=== PATIENT | male | born 1995 | race Caucasian/White ===

== ENCOUNTER 2022-11-01 16:39 | Inpatient (IN) | payer MEDICAID ==
[~2022-11-01] VITALS: Ht 165.1 cm; Wt 75.7 kg
[2022-11-01 17:09] VITALS: BP 121/78; PULSE 99; RESP 20; TEMP 98.4
[2022-11-01] MEDS ORDERED: ZOLPIDEM TARTRATE 10 MG TABLET PO PRN (17:15)
[2022-11-01 18:06] LABS: GLUCOMETER DEV NAME(LOC) POC.BV
[2022-11-01] MEDS: BuPROPion HCL XL 150 MG ER TABLET PO SCH (19:10)
[2022-11-01 19:31] VITALS: BP 128/88; PULSE 96; RESP 18; TEMP 98.2; O2SAT 98
[2022-11-01] MEDS: TraZODone HCL 50 MG TABLET PO SCH (20:07)
[2022-11-01] MEDS: LORazepam 2 MG TABLET PO PRN (20:07)
[2022-11-01] MEDS: QUEtiapine FUMARATE 200 MG TABLET PO SCH (20:07)
[2022-11-01 20:49] VITALS: BP 128/88; PULSE 96; RESP 16; TEMP 98.2; O2SAT 99
[2022-11-02] MEDS ORDERED: CloNIDine HCL 0.1 MG TABLET PO PRN (05:30)
[2022-11-02] MEDS ORDERED: MAGNESIUM HYDROXIDE SUSPENSION 30 ML UDCUP PO PRN (05:30)
[2022-11-02] MEDS ORDERED: BACITRACIN 28 GM OINTMENT TP PRN (05:30)
[2022-11-02] MEDS ORDERED: PETROLATUM,WHITE 28 GM JELLY TP PRN (05:30)
[2022-11-02] MEDS ORDERED: IBUPROFEN 600 MG TABLET PO PRN (05:30)
[2022-11-02] MEDS ORDERED: ACETAMINOPHEN 325 MG TABLET PO PRN (05:30)
[2022-11-02] MEDS ORDERED: ONDANSETRON HCL 4 MG TABLET PO PRN (05:30)
[2022-11-02] MEDS ORDERED: DOCUSATE SODIUM 100 MG CAPSULE PO PRN (05:30)
[2022-11-02] MEDS ORDERED: ALBUTEROL SULFATE HFA 90 MCG/PUFF 8 GM INHALER IH PRN (05:30)
[2022-11-02] MEDS ORDERED: MAG HYDROX/AL HYDROX/SIMETH ES 30 ML SUSPENSION UDCUP PO PRN (05:30)
[2022-11-02] MEDS ORDERED: BENZOCAINE/MENTHOL LOZENGE PO PRN (05:30)
[2022-11-02] MEDS ORDERED: OMEPRAZOLE 20 MG CAPSULE PO PRN (05:30)
[2022-11-02] MEDS ORDERED: LOPERAMIDE HCL 2 MG CAPSULE PO PRN (05:30)
[2022-11-02] MEDS: LORazepam 2 MG TABLET PO PRN ×3 (08:01→19:19)
[2022-11-02] MEDS: BuPROPion HCL XL 150 MG ER TABLET PO SCH (08:02)
[2022-11-02 08:21] VITALS: RESP 17
[2022-11-02] MEDS: QUEtiapine FUMARATE 200 MG TABLET PO SCH (20:13)
[2022-11-02] MEDS: TraZODone HCL 50 MG TABLET PO SCH (20:13)
[2022-11-02 20:38] VITALS: BP 134/77; PULSE 94; RESP 18; TEMP 98.2; O2SAT 98
[2022-11-03] MEDS: LORazepam 2 MG TABLET PO PRN ×2 (06:48→20:19)
[2022-11-03] MEDS: BuPROPion HCL XL 150 MG ER TABLET PO SCH (08:12)
[2022-11-03] MEDS: NICOTINE 21 MG/24 HOUR PATCH TD SCH (08:16)
[2022-11-03 08:17] LABS: BASOPHILS % (AUTO) 0.6 % (0.0-2.0); EOSINOPHILS % (AUTO) 4.6 % (1.0-6.0); HEMATOCRIT 42.6 % (41-53); HEMOGLOBIN 14.5 g/dL (13.5-17.5); LYMPHOCYTES % (AUTO) 32.6 % (22.0-44.0); MEAN CORPUSCULAR VOLUME 91 fL (80-100); MONOCYTES # (AUTO) 0.3 K/uL (0.1-1.0); MONOCYTES % (AUTO) 4.3 % (2.0-9.0); NEUTROPHILS # (AUTO) 3.6 K/uL (1.8-7.7); NEUTROPHILS % (AUTO) 57.9 % (40.0-70.0); PLATELET COUNT (AUTO) 292 K/uL (150-450); RED BLOOD CELL COUNT(AUTO) 4.68 MIL/uL (4.50-5.90); RED CELL DISTRIBUTION WIDTH 12.8 % (11.5-14.5)
[2022-11-03 08:37] VITALS: BP 137/76; PULSE 100; RESP 18; TEMP 97; O2SAT 98
[2022-11-03 08:42] LABS: HEMOGLOBIN A1C 4.9 % (3.8-5.6)
[2022-11-03 09:08] LABS: ALANINE AMINOTRANSFERASE 37 U/L (12-78); ALBUMIN 3.8 g/dL (3.4-5.0); ALKALINE PHOSPHATASE 64 U/L (46-116); ANION GAP 14 mmol/L (8-16); ASPARTATE AMINOTRANSFERASE 17 U/L (15-37); BILIRUBIN,TOTAL 0.3 mg/dL (0.1-1.0); CALCIUM, TOTAL 9.3 mg/dL (8.8-10.5); CARBON DIOXIDE 26 mmol/L (22-29); CHLORIDE 102 mmol/L (98-107); CHOL/HDL RATIO 3.6 (4.2-7.3); CHOLESTEROL 130 mg/dL (131-200); CREATININE 1.01 mg/dL (0.60-1.30); GLOMERULAR FILTR. RATE CALC > 60 mL/min (>60); GLUCOSE,RANDOM 143 mg/dL (70-110); HDL CHOLESTEROL 36 mg/dL (40-60); LDL CHOL (CALC.) 66 mg/dL (0-130); POTASSIUM 3.5 mmol/L (3.5-5.1); SODIUM SERUM 142 mmol/L (136-145); THYROID STIMULATING HORMONE 1.75 uIU/mL (0.36-3.74); TOTAL PROTEIN, SERUM 6.9 g/dL (6.4-8.2); TRIGLYCERIDES 142 mg/dL (15-150)
[2022-11-03] MEDS: TraZODone HCL 50 MG TABLET PO SCH (20:19)
[2022-11-03] MEDS: QUEtiapine FUMARATE 200 MG TABLET PO SCH (20:19)
[2022-11-03 20:40] VITALS: BP 130/70; PULSE 78; RESP 18; TEMP 97.8; O2SAT 98
[2022-11-04 08:00] VITALS: BP 138/83; PULSE 95; RESP 18; TEMP 98.7; O2SAT 97
[2022-11-04] MEDS: LORazepam 2 MG TABLET PO PRN ×3 (08:33→20:20)
[2022-11-04] MEDS: NICOTINE 21 MG/24 HOUR PATCH TD SCH (08:33)
[2022-11-04] MEDS: BuPROPion HCL XL 150 MG ER TABLET PO SCH (08:33)
[2022-11-04] MEDS: HALOPERIDOL 5 MG TABLET PO PRN ×2 (15:32→20:20)
[2022-11-04] MEDS: QUEtiapine FUMARATE 200 MG TABLET PO SCH (20:07)
[2022-11-04] MEDS: TraZODone HCL 50 MG TABLET PO SCH (20:07)
[2022-11-04 20:19] VITALS: BP 129/92; PULSE 90; RESP 19; TEMP 98; O2SAT 98
[2022-11-05] MEDS: BuPROPion HCL XL 150 MG ER TABLET PO SCH (08:02)
[2022-11-05] MEDS: NICOTINE 21 MG/24 HOUR PATCH TD SCH (08:03)
[2022-11-05 08:10] VITALS: BP 112/74; PULSE 79; RESP 16; TEMP 98; O2SAT 99
[2022-11-05] MEDS: TraZODone HCL 50 MG TABLET PO SCH (20:05)
[2022-11-05] MEDS: QUEtiapine FUMARATE 200 MG TABLET PO SCH (20:05)
[2022-11-05 20:06] VITALS: RESP 18
[2022-11-06] MEDS: NICOTINE 21 MG/24 HOUR PATCH TD SCH (08:00)
[2022-11-06] MEDS: BuPROPion HCL XL 150 MG ER TABLET PO SCH (08:00)
[2022-11-06 08:11] VITALS: RESP 18
[2022-11-06] MEDS ORDERED: TRAZ-252 PO (09:28)
[2022-11-06] MEDS ORDERED: BUPR-50 PO (09:28)
[2022-11-06] MEDS ORDERED: QUET200T PO (09:29)
== END 2022-11-06 12:15 | disposition home or self-care (01) | DRG 753 ==
LOC: B3A 17:11
PROVIDERS: ADMIT Psychiatry & Neurology Psychiatry; ATTEND Psychiatry & Neurology Psychiatry
DX: F31.4 Bipolar disorder, current episode depressed, severe, without psychotic features (principal); R45.851 Suicidal ideations; F41.9 Anxiety disorder, unspecified; Z20.822 Contact with and (suspected) exposure to COVID-19; G47.00 Insomnia, unspecified; K21.9 Gastro-esophageal reflux disease without esophagitis; F10.10 Alcohol abuse, uncomplicated; F19.10 Other psychoactive substance abuse, uncomplicated; K59.00 Constipation, unspecified; F17.200 Nicotine dependence, unspecified, uncomplicated
CPT/HCPCS: 80053; 80061; 83036; 84439; 84443; 85025; 87081

== ENCOUNTER 2023-04-25 22:16 | Emergency (ER) | payer MEDICAID ==
[~2023-04-25] VITALS: Ht 165.1 cm; Wt 63.6 kg
[~2023-04-25 22:16] MED LIST: BUPR-50 PO; QUET200T PO; TRAZ-252 PO
[2023-04-25 22:19] VITALS: BP 152/95; PULSE 115; RESP 18; TEMP 98.1
[2023-04-25 22:51] LABS: BASOPHILS % (AUTO) 1.3 % (0.0-2.0); EOSINOPHILS % (AUTO) 1.6 % (1.0-6.0); HEMATOCRIT 41.2 % (41-53); HEMOGLOBIN 13.9 g/dL (13.5-17.5); LYMPHOCYTES # (AUTO) 4.5 K/uL (1.0-4.8); LYMPHOCYTES % (AUTO) 59.9 % (22.0-44.0); MEAN CORPUSCULAR HGB CONC 33.7 G/dL (31.0-37.0); MEAN CORPUSCULAR VOLUME 89 fL (80-100); MONOCYTES # (AUTO) 0.4 K/uL (0.1-1.0); MONOCYTES % (AUTO) 4.7 % (2.0-9.0); NEUTROPHILS # (AUTO) 2.4 K/uL (1.8-7.7); NEUTROPHILS % (AUTO) 32.5 % (40.0-70.0); PLATELET COUNT (AUTO) 418 K/uL (150-450); RED BLOOD CELL COUNT(AUTO) 4.62 MIL/uL (4.50-5.90); RED CELL DISTRIBUTION WIDTH 13.2 % (11.5-14.5); WHITE BLOOD COUNT (AUTO) 7.5 K/uL (4.5-11.0)
[2023-04-25] MEDS ORDERED: LIDOCAINE 1% 10 ML VIAL ONE (22:55)
[2023-04-25] MEDS ORDERED: ACETAMINOPHEN 500 MG TABLET PO ONE (23:00)
[2023-04-25] MEDS ORDERED: PERTUSS(ACELL),DIPH,TET VAC/PF 0.5 ML SYRINGE IM. ONE (23:00)
[2023-04-25] MEDS ORDERED: BACITRACIN 0.9 GM PACKET OINTMENT TP ONE (23:00)
[2023-04-25] MEDS ORDERED: LIDOCAINE 1% 10 ML VIAL SQ ONE (23:00)
[2023-04-25 23:04] LABS: ANION GAP 9 mmol/L (8-16); CALCIUM, TOTAL 8.8 mg/dL (8.8-10.5); CARBON DIOXIDE 30 mmol/L (22-29); CHLORIDE 102 mmol/L (98-107); CREATININE 1.01 mg/dL (0.60-1.30); GLOMERULAR FILTR. RATE CALC > 60 mL/min (>60); GLUCOSE,RANDOM 116 mg/dL (70-110); POTASSIUM 3.2 mmol/L (3.5-5.1); SODIUM SERUM 141 mmol/L (136-145); UREA NITROGEN, BLOOD 8 mg/dL (7-18)
[2023-04-25 23:10] LABS: ALANINE AMINOTRANSFERASE 44 U/L (12-78); ALKALINE PHOSPHATASE 70 U/L (46-116); ASPARTATE AMINOTRANSFERASE 25 U/L (15-37); BILIRUBIN,TOTAL 0.3 mg/dL (0.1-1.0); TOTAL PROTEIN, SERUM 7.1 g/dL (6.4-8.2)
[2023-04-25 23:13] LABS: ALCOHOL, BLOOD (SERUM) 206 mg/dL (0-10)
== END 2023-04-25 23:45 | disposition home or self-care (01) ==
LOC: EMS 22:26
DX: S51.812A Laceration without foreign body of left forearm, initial encounter (principal); F32.A Depression, unspecified; F17.210 Nicotine dependence, cigarettes, uncomplicated; F10.90 Alcohol use, unspecified, uncomplicated; Y90.9 Presence of alcohol in blood, level not specified; W26.8XXA Contact with other sharp object(s), not elsewhere classified, initial encounter; Y93.89 Activity, other specified; Y92.89 Other specified places as the place of occurrence of the external cause; Y99.8 Other external cause status
CPT/HCPCS: 99283; 80053; 85025; 36415; 12004; G0480; J3490

== ENCOUNTER 2023-07-20 20:40 | Emergency (ER) | payer MEDICAID ==
[~2023-07-20] VITALS: Ht 165.1 cm; Wt 64.0 kg
[2023-07-20 21:10] VITALS: BP 166/111; PULSE 121; RESP 22; TEMP 97.7
[2023-07-20 21:14] LABS: COVID AG,FIA SOURCE NASAL SWAB
[2023-07-20 21:17] LABS: BASOPHILS % (AUTO) 0.9 % (0.0-2.0); EOSINOPHILS % (AUTO) 1.8 % (1.0-6.0); HEMATOCRIT 39.1 % (41-53); HEMOGLOBIN 13.1 g/dL (13.5-17.5); LYMPHOCYTES # (AUTO) 1.8 K/uL (1.0-4.8); LYMPHOCYTES % (AUTO) 16.7 % (22.0-44.0); MEAN CORPUSCULAR HEMOGLOBIN 28.2 pg (26.0-34.0); MEAN CORPUSCULAR HGB CONC 33.5 G/dL (31.0-37.0); MEAN CORPUSCULAR VOLUME 84 fL (80-100); MONOCYTES # (AUTO) 0.8 K/uL (0.1-1.0); MONOCYTES % (AUTO) 7.5 % (2.0-9.0); NEUTROPHILS # (AUTO) 7.8 K/uL (1.8-7.7); NEUTROPHILS % (AUTO) 73.1 % (40.0-70.0); PLATELET COUNT (AUTO) 470 K/uL (150-450); RED BLOOD CELL COUNT(AUTO) 4.64 MIL/uL (4.50-5.90); RED CELL DISTRIBUTION WIDTH 14.5 % (11.5-14.5); WHITE BLOOD COUNT (AUTO) 10.6 K/uL (4.5-11.0)
[2023-07-20 21:28] LABS: SARS-COV2 (COVID) ANTIGEN,FIA Negative (Negative)
[2023-07-20 21:28] LABS: ANION GAP 12 mmol/L (8-16); CALCIUM, TOTAL 9.1 mg/dL (8.8-10.5); CARBON DIOXIDE 25 mmol/L (22-29); CHLORIDE 102 mmol/L (98-107); CREATININE 0.97 mg/dL (0.60-1.30); GLOMERULAR FILTR. RATE CALC > 60 mL/min (>60); GLUCOSE,RANDOM 120 mg/dL (70-110); POTASSIUM 3.9 mmol/L (3.5-5.1); SODIUM SERUM 139 mmol/L (136-145); UREA NITROGEN, BLOOD 9 mg/dL (7-18)
[2023-07-20 21:29] LABS: SALICYLATE 1.5 mg/dL (2.8-20.0)
[2023-07-20 21:33] LABS: ALANINE AMINOTRANSFERASE 35 U/L (12-78); ALBUMIN 3.8 g/dL (3.4-5.0); ALKALINE PHOSPHATASE 106 U/L (46-116); ASPARTATE AMINOTRANSFERASE 39 U/L (15-37); BILIRUBIN,TOTAL 0.3 mg/dL (0.1-1.0); TOTAL PROTEIN, SERUM 8.2 g/dL (6.4-8.2)
[2023-07-20 21:34] LABS: ACETAMINOPHEN < 2 mcg/mL (10-30)
[2023-07-20 21:46] LABS: APPEARANCE,URINE CLEAR (CLEAR); BILIRUBIN,URINE NEGATIVE (NEGATIVE); COLOR,URINE LIGHT YELLOW (YELLOW); GLUCOSE, URINE (UA) NEGATIVE (NEGATIVE); KETONES,URINE NEGATIVE (NEGATIVE); LEUKOCYTE ESTERASE ,URINE NEGATIVE (NEGATIVE); NITRATE,URINE NEGATIVE (NEGATIVE); OCCULT BLOOD,URINE NEGATIVE (NEGATIVE); PH,URINE 6.5 (5.0-8.0); PH,URINE DRUG SCREEN 6.5 (5.0-8.0); PROTEIN,URINE TRACE mg/dL (NEGATIVE); SPECIFIC GRAVITIY, URINE 1.013 (1.003-1.030); UROBILINOGEN,URINE <=1.0 mg/dL (<=1.0)
[2023-07-20 21:51] LABS: ALCOHOL, URINE DRUG SCREEN NEGATIVE (NEGATIVE); AMPHET/METH SCREEN,URINE NEGATIVE (NEGATIVE); BARBITURATE SCREEN, URINE NEGATIVE (NEGATIVE); BENZODIAZEPINES SCREEN,URINE NEGATIVE (NEGATIVE); CANNABINOID SCREEN,URINE NEGATIVE (NEGATIVE); COCAINE SCREEN,URINE NEGATIVE (NEGATIVE); METHADONE SCREEN, URINE NEGATIVE (NEGATIVE); OPIATE SCREEN,URINE NEGATIVE (NEGATIVE); PHENCYCLIDINE SCREEN,URINE NEGATIVE (NEGATIVE)
== END 2023-07-20 22:34 | disposition left against medical advice (07) ==
LOC: EMS 20:41
DX: R45.851 Suicidal ideations (principal); T50.905A Adverse effect of unspecified drugs, medicaments and biological substances, initial encounter; F10.20 Alcohol dependence, uncomplicated; F20.9 Schizophrenia, unspecified; F17.210 Nicotine dependence, cigarettes, uncomplicated; F14.90 Cocaine use, unspecified, uncomplicated; Z20.822 Contact with and (suspected) exposure to COVID-19; Y92.89 Other specified places as the place of occurrence of the external cause
CPT/HCPCS: 99284; 87426; 80053; 81003; 85025; 36415; 93005; 80307; G0480; G0481

== ENCOUNTER 2024-11-18 21:15 | Emergency (ER) | payer MEDICAID, OTHER | END 2024-11-18 23:55 | LOC: EMS 21:18 | DX: F20.9 Schizophrenia, unspecified (principal); F17.210 Nicotine dependence, cigarettes, uncomplicated; F11.90 Opioid use, unspecified, uncomplicated; Z79.899 Other long term (current) drug therapy | CPT/HCPCS: 99284; Z7502 ==